=== PATIENT | male | born 1955 | race Caucasian/White ===

== ENCOUNTER → 2016-09-13 | Outpatient (CLI) | payer BC | END | disposition home or self-care (01) | LOC: GMAB 10:22 | PROVIDERS: ATTEND Family Medicine | DX: Z00.01 Encounter for general adult medical examination with abnormal findings (principal) ==

== ENCOUNTER → 2017-02-14 | Outpatient (CLI) | payer BC ==
--- NOTE | 2017-02-14 14:39 | MRI ---
Study: MRI of the Left Shoulder. Indication: SHOULDER PAIN LEFT Technique: Multiplanar, multi sequence MRI of the left shoulder was obtained without intravenous contrast. Comparison: None. FINDINGS: Mild AC joint osteophytes. Type III acromial morphology with mild lateral downsloping. Supraspinatus and infraspinatus tendinosis with high grade interstitial tearing throughout the supraspinatus tendon insertion. Additional low to intermediate grade interstitial/articular tearing suspected throughout the anterior half of the infraspinatus tendon insertion. No full-thickness tear or tendon retraction. Subscapularis tendinosis with low-grade interstitial tearing superiorly. Teres minor tendon intact. Rotator cuff musculature normal without atrophy, fatty infiltration, or intramuscular edema. Intracapsular long head biceps tendinosis. Circumferential labral truncation and tearing. Minimal glenohumeral joint osteoarthritis. No acute fracture. Mild subcortical cystic change superior glenoid rim adjacent to the bicipital labral anchor. IMPRESSION: Supraspinatus and infraspinatus tendinosis with high grade interstitial tearing of the supraspinatus tendon insertion and low to intermediate grade interstitial/articular tearing of the anterior half infraspinatus tendon. Subscapularis tendinosis with low-grade interstitial tearing superiorly. Circumferential labral truncation and tearing. Minimal glenohumeral joint osteoarthritis. Electronically signed by: Chacorta Izaguirre MD 02/14/2017 2:37 PM CDT
== END | disposition home or self-care (01) ==
LOC: MRI 07:47
PROVIDERS: ATTEND Family Medicine
DX: M19.012 Primary osteoarthritis, left shoulder (principal); M25.512 Pain in left shoulder; M77.8 Other enthesopathies, not elsewhere classified

== ENCOUNTER → 2017-02-23 | Outpatient (CLI) | payer BC | END | disposition home or self-care (01) | LOC: GMAB 10:59 | PROVIDERS: ATTEND Family Medicine | DX: R79.9 Abnormal finding of blood chemistry, unspecified (principal); D72.829 Elevated white blood cell count, unspecified ==

== ENCOUNTER → 2017-12-08 | Outpatient (CLI) | payer BC ==
--- NOTE | 2017-12-08 16:35 | RAD ---
EXAM DESCRIPTION: Shoulder,Right 2 or More Views CLINICAL HISTORY: PAIN IN RIGHT SHOULDER COMPARISON: None Available. TECHNIQUE: Four views of the right shoulder. FINDINGS: There is adequate internal and external rotation. Normal alignment on transaxillary view and transscapular Y view. There is no fracture or dislocation. There are no significant degenerative changes observed. AC joint appears intact. No focal bone lesion. IMPRESSION: Negative for fracture or dislocation. Electronically signed by: Jose Flannery MD 12/08/2017 4:33 PM CDT
== END ==
LOC: RAD 07:38
PROVIDERS: ATTEND Orthopaedic Surgery
DX: M25.511 Pain in right shoulder (principal)

== ENCOUNTER → 2018-09-21 | Outpatient (CLI) | payer BC | LOC: GMAE 14:53 | PROVIDERS: ATTEND Family Medicine | DX: G60.3 Idiopathic progressive neuropathy (principal) ==

== ENCOUNTER → 2019-01-16 | Outpatient (CLI) | payer BC | LOC: GMAE 11:13 | PROVIDERS: ATTEND Family Medicine | DX: Z00.01 Encounter for general adult medical examination with abnormal findings (principal) ==

== ENCOUNTER → 2019-05-20 | Outpatient (CLI) | payer BC ==
--- NOTE | 2019-05-20 13:23 | RAD ---
EXAM DESCRIPTION: Pelvis CLINICAL HISTORY: 64 years Male, PAIN IN LEFT HIP COMPARISON: None. TECHNIQUE: AP radiograph of the pelvis was performed. FINDINGS: The pelvic ring appears grossly intact on this single AP radiograph. No acute fracture or dislocation. Bilateral sacroiliac joints appear normal. Mild bilateral hip osteoarthritis. The visualized lumbo-sacral spine demonstrates mild degenerative changes. IMPRESSION: Single AP radiograph of the pelvis demonstrates grossly intact pelvic ring. Mild bilateral hip osteoarthritis. Electronically signed by: Parul Alford MD 05/20/2019 1:22 PM [facility] [place]
--- NOTE | 2019-05-20 13:24 | RAD ---
EXAM DESCRIPTION: Knee,Left Complete CLINICAL HISTORY: 64 years Male, PAIN IN LEFT KNEE COMPARISON: None. Findings: Four images Location: Left knee No acute fracture or dislocation. Mild medial compartment narrowing. No significant joint effusion. Lateral patellar subluxation and tilt. IMPRESSION: No evidence of acute process in the left knee. Electronically signed by: Cameron Durbin MD 05/20/2019 1:22 PM [employer]
== END ==
LOC: RAD 10:51
PROVIDERS: ATTEND Orthopaedic Surgery
DX: M16.0 Bilateral primary osteoarthritis of hip (principal); M25.562 Pain in left knee

== ENCOUNTER → 2019-07-30 | Outpatient (CLI) | payer BC | DX: I27.21 Secondary pulmonary arterial hypertension (principal); J45.909 Unspecified asthma, uncomplicated; G47.33 Obstructive sleep apnea (adult) (pediatric); E66.01 Morbid (severe) obesity due to excess calories ==

== ENCOUNTER 2019-09-18 05:53 | Day surgery (SDC) | payer BC ==
[2019-09-18] MEDS ORDERED: FAMOTIDINE 10 MG/ML ML IV ONE (07:00)
[2019-09-18] MEDS ORDERED: DEXAMETHASONE INJ 10 MG/ML VIAL ONE (07:00)
[2019-09-18] MEDS ORDERED: PROPOFOL 200 MG/20 ML VIAL IV ONE (07:00)
[2019-09-18] MEDS ORDERED: MAGNESIUM SULFATE INJ 1 GM/2 ML VIAL ONE (07:00)
[2019-09-18] MEDS ORDERED: SODIUM CHLORIDE 0.9% 50 ML VIAL ONE (07:00)
[2019-09-18] MEDS ORDERED: SODIUM CHL 0.9% 100ML MINI-BAG 100 ML IVPB ONE (07:48)
[2019-09-18] MEDS ORDERED: LACTATED RINGERS 1,000 ML ONE (07:48)
[2019-09-18] MEDS ORDERED: ceFAZolin SODIUM 1 GM VIAL ONE (07:48)
[2019-09-18] MEDS ORDERED: LACTATED RINGERS 1,000 ML IVS ONE (08:30)
[2019-09-18] MEDS ORDERED: DEXMEDETOMIDINE HCL 200 MCG/2 ML INJ IV ONE (09:00)
[2019-09-18] MEDS ORDERED: KETAMINE HCL 100 MG/ML VIAL ONE (09:00)
[2019-09-18] MEDS ORDERED: MIDAZOLAM INJ 2 MG/2 ML VIAL ONE ×2 (09:01→09:26)
[2019-09-18] MEDS ORDERED: fentaNYL CITRATE INJ 50 MCG/ML 2 ML AMP ONE (09:01)
[2019-09-18] MEDS ORDERED: SUCCINYLCHOLINE CHLORIDE 200 MG/10 ML VIAL ONE ×2 (09:32→09:39)
[2019-09-18] MEDS: BUPIVACAINE 0.5% 30 ML VIAL INJ ONE ×2 (09:40→10:21)
[2019-09-18] MEDS: ceFAZolin SODIUM 1 GM VIAL ONE ×3 (10:03→10:19)
[2019-09-18] MEDS: BUPIVACAINE LIPOSOME 13.3 MG/ML VIAL INJ ONE ×2 (10:04→10:21)
[2019-09-18] MEDS: VANCOMYCIN HCL INJ 1,000 MG VIAL IVPB ONE ×2 (10:05→10:19)
[2019-09-18 11:18] VITALS: O2SAT 94
[2019-09-18] MEDS ORDERED: ONDANSETRON ODT 8 MG TAB ONE (11:50)
[2019-09-18] MEDS ORDERED: ONDANSETRON ODT 8 MG TAB PO ONE (11:53)
[2019-09-18] MEDS ORDERED: PROMETHAZINE HCL INJ 25 MG/ML VIAL ONE (12:48)
[2019-09-18] MEDS ORDERED: SODIUM CHLORIDE 0.9% 100ML 100 ML IVPB ONE (12:48)
[2019-09-18 15:48] VITALS: BP 134/74; TEMP 97.6
--- NOTE | 2019-09-19 08:24 | OP ---
DATE OF PROCEDURE: 09/18/19 PREOPERATIVE DIAGNOSIS: 1. Medial meniscus tear. 2. Osteoarthritis. POSTOPERATIVE DIAGNOSIS: 1. Medial meniscus tear. 2. Osteoarthritis. PROCEDURE: 1. Knee arthroscopy with partial meniscectomy. 2. Chondroplasty. SURGEON: Leland Steinberg MD. FORESTRY AIDE: Lauri Alarcon CST, -C. ANESTHESIA: General anesthesia. COMPLICATIONS: None. FINDINGS: 1. Complex tear of the posterior body of the medial meniscus. 2. Osteoarthritis of the medial compartment. 3. Normal anterior cruciate ligament, normal posterior cruciate ligament. 4. Osteoarthritis of the lateral compartment. 5. Normal lateral gutter. 6. Normal suprapatellar pouch. 7. Patellofemoral arthritis. 8. Normal medial gutter. INDICATION: Carlos A has a history of pain that has been associated with some mechanical symptoms along the medial aspect of the knee. He has had injections and anti-inflammatories, however, he has failed to gain relief. We discussed options for him and inclusive of that would be knee arthroscopy. After discussing the risks, benefits and alternatives to operative therapy, the patient has given informed consent. PROCEDURE: The patient was brought to the Operating Room and placed in supine position. General anesthesia was induced and the patient's leg was sterilely prepped and draped. Following prepping and draping, standard anteromedial and anterolateral portals were established. Diagnostic arthroscopy was carried out with the above findings. Attention was then focused on the medial compartment. A 3.5 mm full radius shaver was used to debride the meniscal tear as well as cartilaginous surface. An accessory superolateral portal was established and a large nodule on the patella was debrided. It appeared to be a large osteophyte with cartilaginous flap. Once that had been performed, the knee was thoroughly irrigated and drained. Following draining of the knee, the wounds were closed with Nylon suture. Sterile dressings were placed. The patient was awoken from anesthesia and taken to Recovery. POSTOPERATIVE PLAN: The patient will be non-weightbearing and will followup with us in two days. #[id number] [facility]
== END 2019-09-18 14:55 | disposition home or self-care (01) ==
LOC: AMB 05:53
PROVIDERS: ATTEND Orthopaedic Surgery
DX: S83.232A Complex tear of medial meniscus, current injury, left knee, initial encounter (principal); M17.12 Unilateral primary osteoarthritis, left knee; I10 Essential (primary) hypertension; K21.9 Gastro-esophageal reflux disease without esophagitis; E66.09 Other obesity due to excess calories; G47.33 Obstructive sleep apnea (adult) (pediatric); J45.909 Unspecified asthma, uncomplicated; Z68.41 Body mass index [BMI] 40.0-44.9, adult; Z99.89 Dependence on other enabling machines and devices; Z79.899 Other long term (current) drug therapy
CPT/HCPCS: 01400; 29881; 36415; 80048; 80307; 81001; 85025; 87070; A4216; J0330; J0690; J1100; J2250; J2550; J3010; J3370; J3475; J3490; J7050; J7120

== ENCOUNTER → 2020-02-12 | Outpatient (CLI) | payer BC | LOC: GMAE 10:24 | PROVIDERS: ATTEND Family Medicine | DX: I10 Essential (primary) hypertension (principal); Z13.29 Encounter for screening for other suspected endocrine disorder; Z12.5 Encounter for screening for malignant neoplasm of prostate ==